=== PATIENT | male | born 1965 | race Caucasian/White ===

== ENCOUNTER 2016-12-18 10:53 | Outpatient (CLI) | payer BC ==
[2016-06-01 16:23] VITALS: BP 114/83
--- NOTE | 2016-12-18 15:35 | Diagnostic Imaging Report ---
ANGIE CORBETT [facility] [id number] [facility] [address] [address] Report Submission Date: Dec 18, 2016 2:17:01 PM CDT Patient Study Name: SANDRO WILSON Date: Dec 18, 2016 11:04:15 AM CDT Modality Type: CR Gender: M Description: UPPER EXTREMITY : 61 Institution: [facility] Physician: ANGIE CORBETT Right hand 3 views Clinical history: Injured the right hand 3 weeks ago No visible fracture, dislocation or bone destruction. Impression: Normal right hand Electronically signed on Dec 18, 2016 2:17:01 PM CDT by: Bryan MONTAÑO
== END 2016-12-18 10:54 ==
LOC: RAD 10:53
PROVIDERS: ATTEND Physician Assistant
DX: S69.91XA Unspecified injury of right wrist, hand and finger(s), initial encounter (principal); X58.XXXA Exposure to other specified factors, initial encounter; Y93.9 Activity, unspecified; Y99.9 Unspecified external cause status
CPT/HCPCS: 73130

== ENCOUNTER 2018-03-10 09:17 | Outpatient (CLI) | payer SELFPAY ==
[2016-06-01 16:23] VITALS: BP 114/83
[2018-03-10 10:02] LABS: eGFR (African) > 60; eGFR (Non-African) > 60
== END 2018-03-10 09:19 ==
LOC: LAB 09:17
PROVIDERS: ATTEND Family Medicine
DX: I10 Essential (primary) hypertension (principal)
CPT/HCPCS: 36415; 80053; 80061